=== PATIENT | female | born 1985 | race Caucasian/White ===

== ENCOUNTER 2018-04-10 20:52 | Emergency (ER) | payer OTHER ==
[2018-04-10] MEDS: HYDROCODONE/APAP (5/325) TAB PO (22:07)
== END 2018-04-10 23:35 | disposition home or self-care (01) ==
LOC: FTE 20:52
DX: S89.92XA Unspecified injury of left lower leg, initial encounter (principal); Y30.XXXA Falling, jumping or pushed from a high place, undetermined intent, initial encounter; Y92.9 Unspecified place or not applicable; Z87.891 Personal history of nicotine dependence
CPT/HCPCS: 29505; 73562; 73590; 99283-25

== ENCOUNTER 2018-08-21 13:53 | Emergency (ER) | payer OTHER | END 2018-08-21 14:57 | disposition home or self-care (01) | LOC: FTE 13:53 | DX: R22.0 Localized swelling, mass and lump, head (principal); T45.0X5A Adverse effect of antiallergic and antiemetic drugs, initial encounter; F17.210 Nicotine dependence, cigarettes, uncomplicated | CPT/HCPCS: 99283; Z7502 ==